=== PATIENT | male | born 1980 | race Caucasian/White ===

== ENCOUNTER 2021-01-06 09:41 | Inpatient (IN) | payer OTHER ==
[~2021-01-06] VITALS: Ht 170.2 cm; Wt 113.6 kg
[2021-01-06] MEDS ORDERED: BUPR1FIL SL (10:43)
[2021-01-06] MEDS ORDERED: PERTUSS(ACELL),DIPH,TET VAC/PF 0.5 ML SYRINGE IM. ONE (11:15)
[2021-01-06] MEDS ORDERED: BUPRENORPHINE HCL/NALOXONE HCL 8-2 MG SUBLINGUAL TABLET SL ONE (11:15)
[2021-01-06 11:16] LABS: BASOPHILS % (AUTO) 0.4 % (0.0-2.0); EOSINOPHILS % (AUTO) 1.1 % (1.0-6.0); HEMOGLOBIN 14.7 g/dL (13.5-17.5); LYMPHOCYTES # (AUTO) 1.3 K/uL (1.0-4.8); MEAN CORPUSCULAR HEMOGLOBIN 29.3 pg (26.0-34.0); MEAN CORPUSCULAR HGB CONC 32.7 G/dL (31.0-37.0); MEAN CORPUSCULAR VOLUME 90 fL (80-100); MONOCYTES # (AUTO) 0.5 K/uL (0.1-1.0); MONOCYTES % (AUTO) 4.8 % (2.0-9.0); NEUTROPHILS # (AUTO) 7.5 K/uL (1.8-7.7); NEUTROPHILS % (AUTO) 79.7 % (40.0-70.0); PLATELET COUNT (AUTO) 255 K/uL (150-450); RED BLOOD CELL COUNT(AUTO) 5.02 MIL/uL (4.50-5.90); RED CELL DISTRIBUTION WIDTH 14.2 % (11.5-14.5)
[2021-01-06 11:28] LABS: COVID AG,FIA SOURCE NASOPHARYNGEAL
[2021-01-06 11:29] LABS: AMPHET/METH SCREEN,URINE POSITIVE (NEGATIVE); BARBITURATE SCREEN, URINE NEGATIVE (NEGATIVE); BENZODIAZEPINES SCREEN,URINE NEGATIVE (NEGATIVE); CANNABINOID SCREEN,URINE NEGATIVE (NEGATIVE); COCAINE SCREEN,URINE NEGATIVE (NEGATIVE); METHADONE SCREEN, URINE NEGATIVE (NEGATIVE); OPIATE SCREEN,URINE NEGATIVE (NEGATIVE)
[2021-01-06] MEDS ORDERED: ONDANSETRON HCL 4 MG/2 ML VIAL IVP PRN (11:30)
[2021-01-06] MEDS ORDERED: MAGNESIUM HYDROXIDE SUSPENSION 30 ML UDCUP PO PRN (11:30)
[2021-01-06] MEDS: SODIUM CHLORIDE 0.9% 1,000 ML IV SCH ×2 (11:32→23:30)
[2021-01-06 11:34] LABS: PHENCYCLIDINE SCREEN,URINE NEGATIVE (NEGATIVE)
[2021-01-06 11:37] LABS: ANION GAP 8 mmol/L (8-16); CALCIUM, TOTAL 9.1 mg/dL (8.8-10.5); CARBON DIOXIDE 30 mmol/L (22-29); CHLORIDE 102 mmol/L (98-107); CREATININE 0.77 mg/dL (0.60-1.30); GLOMERULAR FILTR. RATE CALC > 60 mL/min (>60); GLUCOSE,RANDOM 105 mg/dL (70-110); POTASSIUM 4.5 mmol/L (3.5-5.1); SODIUM SERUM 140 mmol/L (136-145); UREA NITROGEN, BLOOD 10 mg/dL (7-18)
[2021-01-06 11:43] LABS: ALANINE AMINOTRANSFERASE 29 U/L (12-78); ALBUMIN 3.6 g/dL (3.4-5.0); ALKALINE PHOSPHATASE 93 U/L (46-116); ASPARTATE AMINOTRANSFERASE 16 U/L (15-37); BILIRUBIN,TOTAL 0.3 mg/dL (0.1-1.0); TOTAL PROTEIN, SERUM 7.1 g/dL (6.4-8.2)
[2021-01-06 12:05] VITALS: BP 139/87
[2021-01-06 12:15] VITALS: BP 139/87
[2021-01-06 14:00] VITALS: BP 122/83
[2021-01-06 15:27] VITALS: BP 109/73
[2021-01-06 20:46] VITALS: BP 125/75
[2021-01-07 05:10] VITALS: BP 121/74
[2021-01-07] MEDS: LORazepam 2 MG/ML VIAL IVP PRN ×2 (05:24→19:47)
[2021-01-07 08:10] VITALS: BP 111/69
[2021-01-07] MEDS: FAMOTIDINE 20 MG TABLET PO SCH (08:28)
[2021-01-07] MEDS: SODIUM CHLORIDE 0.9% 1,000 ML IV SCH (11:38)
[2021-01-07 19:50] VITALS: BP 131/74
[2021-01-08] MEDS: SODIUM CHLORIDE 0.9% 1,000 ML IV SCH (00:24)
[2021-01-08 04:32] VITALS: BP 102/66
[2021-01-08] MEDS: LORazepam 2 MG/ML VIAL IVP PRN (04:37)
[2021-01-08 08:20] VITALS: BP 100/56
[2021-01-08] MEDS: FAMOTIDINE 20 MG TABLET PO SCH (08:43)
[2021-01-08] MEDS ORDERED: LORazepam 2 MG/ML VIAL IVP PRN (09:30)
[2021-01-08 19:27] VITALS: BP 128/72
[2021-01-08] MEDS: LORazepam 2 MG TABLET PO PRN (19:59)
[2021-01-08 20:00] VITALS: BP 128/72
[2021-01-09] MEDS: LORazepam 2 MG TABLET PO PRN (04:56)
[2021-01-09 05:04] VITALS: BP 114/75
[2021-01-09] MEDS ORDERED: LORazepam 2 MG TABLET PO PRN (07:00)
[2021-01-09 07:29] VITALS: BP 107/77
[2021-01-09] MEDS: FAMOTIDINE 20 MG TABLET PO SCH (08:30)
[2021-01-09] MEDS ORDERED: LORazepam 2 MG TABLET PO SCH (09:00)
[2021-01-09] MEDS: LORazepam 1 MG TABLET PO PRN (19:39)
[2021-01-09] MEDS: ACETAMINOPHEN 325 MG TABLET PO PRN (19:39)
[2021-01-09 20:00] VITALS: BP 107/62
[2021-01-09] MEDS: MELATONIN 3 MG TABLET PO PRN (22:35)
[2021-01-10] MEDS ORDERED: DiphenhydrAMINE HCL 50 MG/ML VIAL IM ONE (00:30)
[2021-01-10 03:50] VITALS: BP 130/79
[2021-01-10] MEDS: LORazepam 1 MG TABLET PO PRN (04:13)
[2021-01-10] MEDS: ACETAMINOPHEN 325 MG TABLET PO PRN (04:14)
[2021-01-10 07:56] VITALS: BP 114/58
[2021-01-10] MEDS: FAMOTIDINE 20 MG TABLET PO SCH (08:09)
[2021-01-10] MEDS ORDERED: LORazepam 0.5 MG TABLET PO PRN (09:30)
[2021-01-10] MEDS: HEPARIN SODIUM,PORCINE 5,000 UNITS/ML VIAL SQ SCH ×3 (11:30→22:57)
[2021-01-10] MEDS ORDERED: DiphenhydrAMINE HCL 25 MG CAPSULE PO PRN (20:00)
[2021-01-10 20:08] VITALS: BP 116/84
[2021-01-10] MEDS: MELATONIN 3 MG TABLET PO PRN (22:50)
[2021-01-11 04:00] VITALS: BP 124/67
[2021-01-11] MEDS ORDERED: LORazepam 1 MG TABLET PO PRN (07:00)
[2021-01-11 07:23] VITALS: BP 111/61
[2021-01-11] MEDS: HEPARIN SODIUM,PORCINE 5,000 UNITS/ML VIAL SQ SCH (08:47)
[2021-01-11] MEDS: FAMOTIDINE 20 MG TABLET PO SCH (08:47)
[2021-01-11] MEDS ORDERED: LORazepam 1 MG TABLET PO SCH (09:00)
[2021-01-12] MEDS ORDERED: LORazepam 1 MG TABLET PO PRN (07:00)
== END 2021-01-11 13:40 | DRG 897 ==
LOC: EMS 09:48 → 6S 11:49
PROVIDERS: ADMIT Internal Medicine; ATTEND Internal Medicine
DX: F11.10 Opioid abuse, uncomplicated (principal); F15.10 Other stimulant abuse, uncomplicated; Z20.822 Contact with and (suspected) exposure to COVID-19; E66.9 Obesity, unspecified; F41.9 Anxiety disorder, unspecified; Z91.19 Patient's noncompliance with other medical treatment and regimen; Z87.891 Personal history of nicotine dependence; Z68.39 Body mass index [BMI] 39.0-39.9, adult
CPT/HCPCS: 71045; 80053; 85025; 90715; 93005; 99285; G0480; J1200; J1644; J2060; J7030; 36415-L1; 36415-TC